=== PATIENT | male | born 1985 | race Hispanic/Latino ===

== ENCOUNTER 2018-07-24 06:28 | Emergency (ER) | payer OTHER, SELFPAY ==
[2018-07-24 06:36] VITALS: BP 146/80; PULSE 95; RESP 90; TEMP 36.6; O2SAT 99; BMI 25.8
--- NOTE | 2018-07-24 06:42 | PC.NURSE ---
After accidental cutting right arm on glass window at [employer],was bandaged and came here by auto with [employer] escort.
--- NOTE | 2018-07-24 06:50 | ED.UPPEXIN ---
HPI - Extremity Injury (Upper) General Chief Complaint: Extremity Injury, Upper Stated Complaint: CUT OPEN RIGHT ARM Time Seen by Provider: 07/24/18 06:50 Source: patient Mode of arrival: ambulatory Limitations: no limitations History of Present Illness HPI narrative: 32-year-old male, nonsmoker presents to the emergency department for evaluation of a deep cut on his right forearm suffered while working. He accidentally put his arm through a window at work and suffered this deep laceration which has bled significantly and seems to have exposure of deep tissues and structures. Patient has full range of motion and sensation of his hand and fingers. His tetanus will need to be updated. He denies other injury and is otherwise well and free of complaint. complaint: injury to: right Onset (ago): minute(s) Relieving factors: none Exacerbating factors: movement of extremity Context: laceration Associated symptoms: denies other symptoms Related Data Previous Rx's Medication Instructions Recorded cephalexin [Keflex] 500 mg PO QID 7 Days #28 cap 07/24/18 Allergies Allergy/AdvReac Type Severity Reaction Status Date / Time No Known Drug Allergies Allergy Verified 07/24/18 06:40 Review of Systems Review of Systems All systems reviewed & are unremarkable except as noted in HPI and below Constitutional Denies chills, Denies fever(s), Denies lethargy and Denies weakness Eyes Denies change in vision, Denies eye discharge, Denies irritation and Denies loss of vision ENT Ears, Nose, Mouth, and Throat: Denies change in voice, Denies neck pain and Denies sore throat Cardiovascular Denies chest pain, Denies irregular heart rhythm, Denies lightheadedness, Denies palpitations, Denies dyspnea, Denies dyspnea on exertion and Denies orthopnea Respiratory Denies cough, Denies dyspnea, Denies dyspnea on exertion and Denies wheezing Gastrointestinal Gastrointestinal: Denies abdominal pain, Denies change in bowel habits, Denies diarrhea, Denies nausea and Denies vomiting Genitourinary Denies hematuria, Denies flank pain, Denies urinary incontinence and Denies urinary urgency Musculoskeletal Denies neck pain Integumentary/Breasts Denies pruritus, Denies erythema, Denies rash and Reports wounds Neurologic Denies confusion, Denies loss of vision and Denies weakness Psychiatric Denies anxiety, Denies confusion, Denies depression, Denies homicidal ideation and Denies suicidal ideation Endocrine Denies palpitations Hematologic/Lymphatic Denies easy bruising Allergic/Immunologic Denies wheezing [facility] Social History Smoking Status: Never smoker Exam Narrative Exam Narrative: GEN: AOx3 and in mild distress EYES: Pupils are equal, round, and reactive to light and accommodation. Extraoccular muscles are intact bilaterally. There is no subconjunctival hemorrhage or exudate. CHEST: Lungs are clear to auscultation bilaterally and free of wheezes, rales, or rhonchi. Heart rate is regular rhythm, there are no murmurs, clicks, rubs, or gallops. There is no chest wall tenderness. ABD: Abdomen is soft and nontender. There is no guarding or rebound. Bowel sounds are normal in all 4 quadrants. There is no mass or organomegaly. EXT: 7 cm deep laceration of volar R forearm with visualization of deep structures. Very minimal bleeding. Full laceration of palmaris longus tendon. Full painless ROM of all extremities with no loss of sensation or strength. SKIN: Large laceration, see above. Warm, pink, and dry. No erythema or rash Initial Vital Signs Initial Vital Signs: Vital Signs Temperature 98 F 07/24/18 06:36 Pulse Rate 95 H 07/24/18 06:36 Respiratory Rate 90 H 07/24/18 06:36 Blood Pressure 146/80 H 07/24/18 06:36 Pulse Oximetry 99 07/24/18 06:36 Procedures Laceration Repair Laceration 1: Side (If applicable): right Size (cm): 7 Description: linear Depth: involves muscle layer and involves tendon Local Anesthetic: lidocaine 1% and with epi Amount of anesthesia used (mL): 8 Pre-repair: wound explored and irrigated extensively Skin layer closed with: nylon Size (cm): 4-0 Number of sutures: 8 Technique: simple, interrupted Subcutaneous layer closed with: vicryl Size: 4-0 Number of sutures: 3 Technique: simple, interrupted Course Consultations Consultation #1: orthopedic consult performed at bedside. Please see Dr. Hess's note for complete details. She did have conversation with patient regarding surgery or not, they agree not to given lack likelihood of any permanent deficit. She will see him in the office later this week Vital Signs - 8 hr 12/27/18 06:36 Temperature 98 F Pulse Rate 95 H Respiratory Rate 90 H Blood Pressure 146/80 H Pulse Oximetry 99 Discharge Plan Departure Patient Disposition: Home Clinical Impression: Flexor tendon laceration of right forearm with open wound Discharge Date/Time: 07/24/18 07:54 Interventions: ED Discharge Assessment Last Done: 07/24/18 07:52 Instructions: DI for Laceration Repair -- Complex Activity Restrictions/Additional Instructions: Please keep the wound clean and dry to the best of your ability. Please monitor for signs of infection such as redness to the skin or increasing pain. Have the sutures removed by your doctor in about 7 days. If you are unable to get into your doctor, we would be happy to remove the sutures in that same timeframe. Prescriptions: New cephalexin [Keflex] 500 mg capsule 500 mg PO QID 7 Days Qty: 28 RF: 0 Referrals: Kenzie Hess MD [Physician] - Stand Alone Forms: Work Release Note
[2018-07-24 07:48] VITALS: BP 130/66; PULSE 84; RESP 14
--- NOTE | 2018-07-24 07:51 | PC.NURSE ---
Dr. Monroy completed complex multi layer closer of right forearm laceration. Orthopedics in to consult.
[2018-07-24 07:52] VITALS: BP 130/66; PULSE 84; RESP 14; O2SAT 100
== END 2018-07-24 07:54 | disposition home or self-care (01) ==
PROVIDERS: Emergency Provider Emergency Medicine
DX: S51.811A Laceration without foreign body of right forearm, initial encounter (principal); W25.XXXA Contact with sharp glass, initial encounter; Y99.0 Civilian activity done for income or pay
CPT/HCPCS: 12002; 99282; 99283